=== PATIENT | male | born 1990 | race African-American/Black ===

== ENCOUNTER 2017-06-25 10:42 | Emergency (ER) | payer OTHER ==
[~2017-06-25] VITALS: Ht 182.9 cm; Wt 104.3 kg
[~2017-06-25 10:42] MED LIST: IBUPROFEN 600600 M1 PO; NORCO 5-325 TA1 EACH PO; VIBRAMYCIN 100100 MG PO
== END 2017-06-25 14:17 | disposition home or self-care (01) ==
LOC: ER 10:42
DX: M25.551 Pain in right hip (principal); Z91.013 Allergy to seafood